=== PATIENT | male | born 1965 | race African-American/Black ===

== ENCOUNTER 2019-06-20 17:42 | Emergency (ER) | payer OTHER ==
[~2019-06-20] VITALS: Ht 180.3 cm; Wt 76.9 kg
--- NOTE | 2019-06-20 17:50 | PHYS DOC ---
Past History Past Medical History: Anxiety, Arthritis, Asthma, Bronchitis, Cancer, Hyperthyroid, Hypothyroid, Other Past Surgical History: Other Smoking: Cigarettes Alcohol Use: Rarely Drug Use: Other (Polysubstance in past) Adult General Chief Complaint Chief Complaint: COUGH.... " I just moved into the [facility].. I ve been down 5 years...I to get to be released back to [facility] soon.. I hope.. but everyone is sick at [facility]... I did start smoking again.. I should n't because I have Asthma and bronchitis.. But I ve been coughing constant the last 3 days... " HPI HPI Patient is a 54 year old male inmate from [facility] who presents with above hx and complaints of myalgia, arthralgia, malaise, sore throat, subjective fevers, and a chronic nagging cough last 3 days. Reportedly other inmates [facility] have colds and upper airway infections. Patient had asthma as a child has not had any recent admissions for asthma exacerbation as an adult. Patient does not know his best peak flow. No recent travel [place]. Has been [facility] the last 5 years [facility] Patient has remote polysubstance abuse. Patient reportedly has started smoking again. Patient denies any history immunosuppression or HIV. Patient is unsure if he had a flu vaccination this season. Patient has a 28-ikpy-xorm smoking history. Patient does not vape. Review of Systems Review of Systems Constitutional: Subjective fever or chills [] Eyes: Denies change in visual acuity, redness, or eye pain [] HENT: Complaints of nasal congestion and sore throat [] Respiratory: Nagging cough, some green sputum, wheezing . Cardiovascular: No additional information not addressed in HPI [] GI: Denies abdominal pain, nausea, vomiting, bloody stools or diarrhea [] : Denies dysuria or hematuria [] Musculoskeletal: Patient complaints of generalized myalgia and arthralgia Integument: Denies rash or skin lesions [] Neurologic: Denies headache, focal weakness or sensory changes [] Endocrine: Denies polyuria or polydipsia [] All other systems were reviewed and found to be within normal limits, except as documented in this note. Family History Family History Noncontributory to presentation Current Medications Current Medications See nursing for home meds Allergies Allergies No known drug allergies Physical Exam Physical Exam Constitutional: Moderate acute distress, non-toxic appearance. [] HENT: Normocephalic, atraumatic, bilateral external ears normal, oropharynx moist, postnasal drainage and mild pharyngeal erythema, no oral exudates, nose swollen turbinates and clear rhinorrhea Eyes: PERRLA, EOMI, conjunctiva normal, no discharge. [] Neck: Normal range of motion, no tenderness, supple, no stridor. RR nose bridge Cardiovascular: Tachycardia Heart rate regular rhythm, no murmur [] Lungs & Thorax: Bilateral breath sounds equal apexes with a few scattered wheezes on auscultation. Some bibasilar rhonchi Abdomen: Bowel sounds normal, soft, no tenderness, no masses, no pulsatile masses. [] Skin: Warm, dry, no erythema, no rash. [] Back: No tenderness, no CVA tenderness. [] Extremities: No tenderness, no cyanosis, no clubbing, ROM intact, no edema. [] No cording in legs. Neurologic: Alert and oriented X 3, normal motor function, normal sensory function, no focal deficits noted. [] Psychologic: Affect anxious, judgement normal, mood normal. [] EKG EKG [] Radiology/Procedures Radiology/Procedures [][place] [id number] IMAGING REPORT Signed PATIENT: CAMDEN PURDY ACCOUNT: [id number] : 1965 LOCATION: ER AGE: 54 SEX: M EXAM STATUS: DEP ER ORD. PHYSICIAN: VERONICA GALVAN MD REASON: cough, shortness breath , wheezing PROCEDURE: CHEST PA & LATERAL Two-view chest HISTORY: Cough, shortness breath, wheezing COMPARISON: None FINDINGS: The cardiomediastinal silhouette is not enlarged. No evidence of pneumothorax. No pleural effusion. Mild markings in the left lung base, likely mild atelectasis. No evidence of pneumothorax. Bones appear intact. IMPRESSION: Mild opacity in left lung base, most likely atelectasis. No lobar airspace consolidation. Electronically signed by: Mell Lowe MD (06/20/2019 7:31 PM) [facility] DICTATED AND SIGNED BY: MELL LOWE MD DATE: 06/20/191930 CC: VERONICA GALVAN MD; PCP,NO ~ Course & Med Decision Making Course & Med Decision Making Pertinent Labs and Imaging studies reviewed. (See chart for details) Patient to push fluids and fruit juices. Take Tylenol ibuprofen for discomfort. Take prednisone 50 mg a day for 5 days. Use MDI 2 puffs 4 times a day. Follow-up primary care. Return if any concerns. Will cover basilar atelectasis versus infiltrate with his Zithromax 250 a day. However suspect this presentation is influenza A . Patient encouraged to stop smoking. Impression: 1. Asthma exacerbation 2. Bronchitis 3. Influ. A+ 4. Tobacco Use. [] Dragon Disclaimer Dragon Disclaimer This electronic medical record was generated, in whole or in part, using a voice recognition dictation system. Departure Departure: Disposition: HOME/RESIDENCE PRIOR TO ADM Condition: STABLE Referrals: PCP,NO (PCP) Scripts Azithromycin (ZITHROMAX) 250 Mg Tablet 250 MG PO DAILY for ANTI-BIOTIC, #5 TAB 0 Refills Prov: VERONICA GALVAN MD 06/20/19 Prednisone (PREDNISONE) 50 Mg Tablet 50 MG PO DAILY for reactive airway for 5 Days, #5 TAB Prov: VERONICA GALVAN MD 06/20/19 Dragon Disclaimer This chart was dictated in whole or in part using Voice Recognition software in a busy, high-work load, and often noisy Emergency Department environment. It may contain unintended and wholly unrecognized errors or omissions. VERONICA GALVAN MD Jun 20, 2019 17:50
[2019-06-20] MEDS ORDERED: IBUPROFEN 600 MG TABLET. PO ONE (18:00)
[2019-06-20] MEDS ORDERED: diphenhydrAMINE HCL 25 MG CAPSULE PO ONE (18:00)
[2019-06-20] MEDS ORDERED: predniSONE 10 MG TABLET PO ONE (18:00)
[2019-06-20] MEDS ORDERED: ALBUTEROL SULFATE 8GM INHALER. INH ONE (18:00)
[2019-06-20] MEDS ORDERED: ACETAMINOPHEN 500 MG TABLET PO ONE (18:00)
[2019-06-20] MEDS ORDERED: PRED50TA PO (18:14)
[2019-06-20] MEDS ORDERED: AZITHROMYCIN 250 MG TABLET. PO ONE (18:45)
[2019-06-20] MEDS ORDERED: AZIT250T PO (18:45)
[2019-06-20 18:47] LABS: INFLUENZA A PATIENT POSITIVE (NEGATIVE); INFLUENZA B PATIENT NEGATIVE (NEGATIVE)
[2019-06-20] MEDS ORDERED: AZITHROMYCIN 250 MG TABLET. ONE (18:47)
[2019-06-20] MEDS ORDERED: cefTRIAXone SODIUM 1 GM VIAL ONE (18:48)
[2019-06-20 18:58] VITALS: BP 131/76
[2019-06-20] MEDS ORDERED: cefTRIAXone IM 1 GM VIAL IM ONE (19:00)
--- NOTE | 2019-06-20 19:34 | RAD ---
Two-view chest HISTORY: Cough, shortness breath, wheezing COMPARISON: None FINDINGS: The cardiomediastinal silhouette is not enlarged. No evidence of pneumothorax. No pleural effusion. Mild markings in the left lung base, likely mild atelectasis. No evidence of pneumothorax. Bones appear intact. IMPRESSION: Mild opacity in left lung base, most likely atelectasis. No lobar airspace consolidation. Electronically signed by: Baldemar Lowe MD (06/20/2019 7:31 PM) [facility]
== END 2019-06-20 19:01 | disposition home or self-care (01) ==
LOC: ER 17:42
DX: J45.901 Unspecified asthma with (acute) exacerbation (principal); J10.1 Influenza due to other identified influenza virus with other respiratory manifestations; F17.210 Nicotine dependence, cigarettes, uncomplicated; F41.9 Anxiety disorder, unspecified; M19.90 Unspecified osteoarthritis, unspecified site; E03.9 Hypothyroidism, unspecified; E05.90 Thyrotoxicosis, unspecified without thyrotoxic crisis or storm
CPT/HCPCS: 71046; 87070; 87804; 87880; 94640; 96372; 99285; J0456; J0696; J7512; J7613; Q0163; 94664